=== PATIENT | female | born 1965 | race Hispanic/Latino ===

== ENCOUNTER 2022-12-23 06:06 | Day surgery (SDC) | payer OTHER ==
[2022-12-20 10:19] LABS: BASOPHILS % (AUTO) 0.8 % (0.0-5.0); EOSINOPHILS % (AUTO) 1.5 % (0.0-8.0); HEMATOCRIT 42.6 % (36-48); LYMPHOCYTES % (AUTO) 41.8 % (21.0-51.0); MEAN CORPUSCULAR HEMOGLOBIN 27.4 pg (27.0-33.0); MEAN CORPUSCULAR HGB CONC 31.9 g/dL (32.0-36.0); MEAN CORPUSCULAR VOLUME 85.7 fL (79-99); MONOCYTES % (AUTO) 5.4 % (3.0-13.0); NEUTROPHILS % (AUTO) 50.1 % (40.0-77.0); PLATELET COUNT (AUTO) 255 K/uL (130-400); RED BLOOD CELL COUNT(AUTO) 4.97 MIL/uL (4.00-5.50); RED CELL DISTRIBUTION WIDTH 13.2 % (11.0-15.5); WHITE BLOOD COUNT (AUTO) 5.3 K/uL (4.8-10.8)
[2022-12-20 10:29] LABS: INR 0.93 (0.85-1.15); PROTHROMBIN TIME 9.7 SEC (9.6-11.6)
[2022-12-20 10:30] LABS: PARTIAL THROMBOPLASTIN TIME 25.4 SEC (26.3-35.5)
[2022-12-20 10:32] LABS: ALBUMIN 4.2 g/dL (3.5-5.0); BILIRUBIN,DIRECT 0.1 mg/dL (0.0-0.3); CREATININE 0.7 mg/dL (0.5-1.5); POTASSIUM 4.1 mmol/L (3.5-5.1); TOTAL PROTEIN, SERUM 8.3 g/dL (6.0-8.3)
[2022-12-20 11:24] VITALS: BP 110/66
[2022-12-23] VITALS (20 sets, daily range): BP systolic 110–142; BP diastolic 62–79
[~2022-12-23] VITALS: Ht 152.4 cm; Wt 64.0 kg
[~2022-12-23 06:06] MED LIST: IBUP-2784 PO; LEVO50CA4 PO
[2022-12-23] MEDS ORDERED: CEFAZOLIN SODIUM 2 GM VIAL ONE (06:42)
[2022-12-23] MEDS ORDERED: LACTATED RINGERS 1000ML 1,000 ML IV ONE (06:42)
[2022-12-23] MEDS ORDERED: LORA10TA7 PO (07:05)
[2022-12-23] MEDS ORDERED: PHARMACY COMMUNICATION MISC SCH (07:30)
[2022-12-23] MEDS ORDERED: BUPIVACAINE/EPI/PF 0.5% 30ML VIAL IJ SCH (07:30)
[2022-12-23] MEDS ORDERED: MIDAZOLAM HCL 1 MG/ML 2ML VIAL ONE (07:36)
[2022-12-23] MEDS ORDERED: GLYCOPYRROLATE 1 MG/5 ML SYRINGE ONE (07:36)
[2022-12-23] MEDS ORDERED: FENTANYL CITRATE PF 50 MCG/1 ML 2ML VIAL ONE (07:36)
[2022-12-23] MEDS ORDERED: LIDOCAINE PF 100MG/5ML (2%) SYRINGE 5ML ONE (07:36)
[2022-12-23] MEDS ORDERED: ROCURONIUM 10MG/1ML SYR 10 MG/ML ML ONE (07:36)
[2022-12-23] MEDS ORDERED: PROPOFOL 10 MG/ML 20ML VIAL IV ONE (07:36)
[2022-12-23] MEDS ORDERED: IOHEXOL-350 50ML VIAL IV ONE (07:38)
[2022-12-23] MEDS ORDERED: DiphenhydrAMINE HCL 50 MG/ML VIAL ONE (07:39)
[2022-12-23] MEDS ORDERED: HYDROMORPHONE 1 MG INJ ONE (07:41)
[2022-12-23] MEDS ORDERED: FAMOTIDINE 20MG VIAL IV ONE (07:41)
[2022-12-23] MEDS ORDERED: ONDANSETRON 4MG INJ ONE (08:23)
[2022-12-23] MEDS ORDERED: NEOSTIGMINE 5MG/5ML SYR IV ONE (09:10)
== END 2022-12-23 11:50 | disposition home or self-care (01) ==
LOC: DAH 06:06
PROVIDERS: ATTEND Surgery
DX: K80.10 Calculus of gallbladder with chronic cholecystitis without obstruction (principal); Z20.822 Contact with and (suspected) exposure to COVID-19; K21.9 Gastro-esophageal reflux disease without esophagitis; Z79.01 Long term (current) use of anticoagulants; Z79.899 Other long term (current) drug therapy; Z98.890 Other specified postprocedural states
CPT/HCPCS: 80076; 80048; 84703; 85025; 85610; 85730; 87426; 36415; 71045; 93005; 47563; 81025; A6260; J7030; C1758; J7120; J1200; J3490 ×3; J3010; J1170; J2710; J2001; J2250; J2704; J2405; Q9967; J0690; A4649 ×2; A4930 ×2; A4215; A4223; A4222; A4221; A4663; A4216; A4600

== ENCOUNTER → 2024-01-02 | Outpatient (CLI) | payer OTHER ==
[~2024-01-02] MED LIST changes: +LORA10TA7 PO
== END | disposition home or self-care (01) ==
LOC: SHCH 14:29
PROVIDERS: ATTEND Internal Medicine Cardiovascular Disease
DX: I87.2 Venous insufficiency (chronic) (peripheral) (principal); R06.02 Shortness of breath
CPT/HCPCS: 93306; 93970